=== PATIENT | female | born 1995 | race Caucasian/White ===

== ENCOUNTER 2020-01-03 17:55 | Emergency (ER) | payer BC, SELFPAY ==
[2020-01-03] MEDS ORDERED: Adacel (T-DAP) 0.5 ML SYRINGE ONE (18:13)
[2020-01-03] MEDS ORDERED: Fentanyl 100 MCG/2 ML VIAL ONE ×2 (18:13→18:48)
[2020-01-03] MEDS ORDERED: Ondansetron PF 4 MG/2 ML Vial ONE (18:13)
--- NOTE | 2020-01-03 18:40 | RAD ---
RIGHT FOREARM TWO VIEWS: History: Forearm injury. FINDINGS: Distal radial and ulna styloid fractures again noted. No other findings. IMPRESSION: Distal radial and ulnar styloid fractures as previously described. POS: OFF
--- NOTE | 2020-01-03 18:47 | RAD ---
RIGHT WRIST THREE VIEWS: History: Wrist injury FINDINGS: There is a complex distal radial fracture. The fracture is a transverse component, but also an obliqu e component which extends intraarticularly near the radial ulnar joint space. There is an avulsive fr acture of the ulnar styloid. Distal radial fracture is dorsally angulated. IMPRESSION: Distal radial and ulnar styloid fractures. POS: OFF
[2020-01-03] MEDS ORDERED: Dexamethasone 10 MG/ML VIAL ONE (20:16)
--- NOTE | 2020-01-03 20:44 | RAD ---
RIGHT WRIST TWO VIEWS: History: Post reduction. FINDINGS: The distal radial fracture appears to be in improved position as compared to the prior exam, with red uction of the dorsal angulation. Nondisplaced ulnar styloid fracture is again noted. IMPRESSION: Reduction of distal radial fracture. POS: OFF
== END 2020-01-03 21:12 | disposition home or self-care (01) ==
LOC: MADERS 17:55
DX: S52.501A Unspecified fracture of the lower end of right radius, initial encounter for closed fracture (principal); S52.611A Displaced fracture of right ulna styloid process, initial encounter for closed fracture; S71.111A Laceration without foreign body, right thigh, initial encounter; L23.7 Allergic contact dermatitis due to plants, except food; V27.4XXA Motorcycle driver injured in collision with fixed or stationary object in traffic accident, initial encounter
CPT/HCPCS: 12002; 25605; 90471; 90715; 96372; 96374; 96375; J1100; J2405; J3010